=== PATIENT | male | born 1960 | race Caucasian/White ===

== ENCOUNTER 2017-04-11 09:46 | Day surgery (SDC) | payer MEDICAID ==
[~2017-04-11 09:46] MED LIST: LACT10SO PO
[2017-04-11 10:02] VITALS: BP 101/70; PULSE 65; RESP 20; TEMP 98.3; O2SAT 97
[2017-04-18] MEDS ORDERED: KAOP240C PO (13:16)
[2017-04-18] MEDS ORDERED: PANT20TA2 PO (13:25)
[2017-05-01] MEDS ORDERED: LACT10SO PO ×2 (12:59→18:00)
== END 2017-04-11 11:05 | disposition home or self-care (01) ==
LOC: HROP 09:46 → HRIP 09:47 → HROP 11:05
PROVIDERS: ATTEND Urology
DX: Z43.1 Encounter for attention to gastrostomy (principal)
CPT/HCPCS: 99212; G0463